=== PATIENT | female | born 1990 | race American Indian/Alaskan Native ===

== ENCOUNTER 2020-06-10 06:10 | Emergency (ER) | payer MEDICAID ==
[2020-06-10 06:51] VITALS: BP 109/58
--- NOTE | 2020-06-10 08:12 | Emergency Department Report ---
ED ENT HPI - General Chief complaint: Earache Stated complaint: RIGHT EAR PAIN Time Seen by Provider: 06/10/20 07:49 Source: patient Mode of arrival: Ambulatory Limitations: No Limitations - History of Present Illness Initial comments: 29-year-old -[place]cu[place] female presents to the emergency room for 2-day history of earache stuffy nose runny nose and sneezing. Patient states she is 27 weeks . She denies any fever chills no nausea no vomiting no abdominal pain no vaginal bleeding or vaginal discharge. She does admit to sneezing frontal headache right ear pain stuffiness and runny nose. She is 4 para 1 last menstrual period was 12/03/2019. She currently has no known drug allergies takes her vitamins and has no past medical history. MD complaint: ear pain Onset/Timin -: days(s) Location: R ear Severity scale (0 -10): 4 Quality: aching Consistency: intermittent Improves with: none Worsens with: none Associated Symptoms: rhinorrhea, other (Nasal congestion). denies: fever, cough, gum swelling, toothache, pain with swallowing, discharge from ear - Related Data Previous Rx's Medication Instructions Recorded Last Taken Type Amoxicillin [Trimox CAP] 500 mg PO Q8H 10 Days #30 capsule 06/10/20 Unknown Rx Cetirizine HCl [ZyrTEC 10mg cap] 10 mg PO QDAY #30 capsule 06/10/20 Unknown Rx Cromolyn 4% (Nf) [Nasalcrom (Nf)] 1 spray NS QDAY #1 bottle 06/10/20 Unknown Rx Allergies Allergy/AdvReac Type Severity Reaction Status Date / Time No Known Allergies Allergy Unverified 06/10/20 06:13 ED Dental HPI - General Chief complaint: Earache Stated complaint: RIGHT EAR PAIN Time Seen by Provider: 06/10/20 07:49 Source: patient Mode of arrival: Ambulatory Limitations: No Limitations - Related Data Previous Rx's Medication Instructions Recorded Last Taken Type Amoxicillin [Trimox CAP] 500 mg PO Q8H 10 Days #30 capsule 06/10/20 Unknown Rx Cetirizine HCl [ZyrTEC 10mg cap] 10 mg PO QDAY #30 capsule 06/10/20 Unknown Rx Cromolyn 4% (Nf) [Nasalcrom (Nf)] 1 spray NS QDAY #1 bottle 06/10/20 Unknown Rx Allergies Allergy/AdvReac Type Severity Reaction Status Date / Time No Known Allergies Allergy Unverified 06/10/20 06:13 ED Review of Systems ROS: Stated complaint: RIGHT EAR PAIN Other details as noted in HPI Comment: All other systems reviewed and negative ED Past Medical Hx - Past Medical History Previous Medical History?: No - Surgical History Past Surgical History?: Yes Additional Surgical History: D & C - Social History Smoking Status: Never Smoker Substance Use Type: None - Medications Home Medications: Home Medications Medication Instructions Recorded Confirmed Last Taken Type Amoxicillin [Trimox CAP] 500 mg PO Q8H 10 Days #30 capsule 06/10/20 Unknown Rx Cetirizine HCl [ZyrTEC 10mg cap] 10 mg PO QDAY #30 capsule 06/10/20 Unknown Rx Cromolyn 4% (Nf) [Nasalcrom (Nf)] 1 spray NS QDAY #1 bottle 06/10/20 Unknown Rx ED Physical Exam - General Limitations: No Limitations General appearance: alert, in no apparent distress - Head Head exam: Present: atraumatic, normocephalic - Eye Eye exam: Present: normal appearance, PERRL, EOMI - ENT ENT exam: Present: normal orophraynx, mucous membranes moist, normal external ear exam - Expanded ENT Exam Expanded TM/Canal exam: Erythema: Right TM - Neck Neck exam: Present: normal inspection, full ROM. Absent: lymphadenopathy - Respiratory Respiratory exam: Present: normal lung sounds bilaterally. Absent: respiratory distress - Cardiovascular Cardiovascular Exam: Present: regular rate, normal rhythm. Absent: systolic murmur, diastolic murmur, rubs, gallop - Neurological Exam Neurological exam: Present: alert, oriented X3, normal gait - Psychiatric Psychiatric exam: Present: normal affect, normal mood - Skin Skin exam: Present: warm, dry, intact, normal color. Absent: rash ED Course Vital Signs 06/10/20 06:15 Temperature 98.5 F Pulse Rate 118 H Respiratory 18 Rate Blood Pressure 109/58 O2 Sat by Pulse 97 Oximetry ED Medical Decision Making - Medical Decision Making 29-year-old -[place]cu[place] female presents to the emergency room for 2-day history of earache stuffy nose runny nose and sneezing. Patient states she is 27 weeks . She denies any fever chills no nausea no vomiting no abdominal pain no vaginal bleeding or vaginal discharge. She does admit to sneezing frontal headache right ear pain stuffiness and runny nose. She is 4 para 1 last menstrual period was 12/03/2019. She currently has no known drug allergies takes her vitamins and has no past medical history. Patient will be discharged home on Zyrtec's, amoxicillin and nasal cromolyn. Patient is instructed to continue with her Tylenol and to follow-up with her RAIL OPERATIONS CONTROLLER. Critical care attestation.: If time is entered above; I have spent that time in minutes in the direct care of this critically ill patient, excluding procedure time. ED Disposition Clinical Impression: Allergic rhinitis, Otitis media Disposition: - TO HOME OR SELFCARE Is pt being admited?: No Does the pt Need Aspirin: No Condition: Stable Instructions: Allergic Rhinitis (ED), Otitis Media (ED) Additional Instructions: Complete antibiotics as prescribed. Take medications as prescribed. Follow-up with your RAIL OPERATIONS CONTROLLER. He can continue with the Tylenol extra strength as needed for pain. Prescriptions: Cromolyn 4% (Nf) [Nasalcrom (Nf)] 1 spray NS QDAY #1 bottle Amoxicillin [Trimox CAP] 500 mg PO Q8H 10 Days #30 capsule Cetirizine HCl [ZyrTEC 10mg cap] 10 mg PO QDAY #30 capsule Referrals: PRIMARY CARE,MD [Primary Care Provider] - 3-5 Days You are, RAIL OPERATIONS CONTROLLER [Other] - 3-5 Days
== END 2020-06-10 08:22 | disposition home or self-care (01) ==
LOC: ED 06:10
DX: O99.512 Diseases of the respiratory system complicating pregnancy, second trimester (principal); J30.9 Allergic rhinitis, unspecified; O26.892 Other specified pregnancy related conditions, second trimester; H66.91 Otitis media, unspecified, right ear; Z79.2 Long term (current) use of antibiotics; Z79.899 Other long term (current) drug therapy; Z3A.27 27 weeks gestation of pregnancy
CPT/HCPCS: 99281

== ENCOUNTER 2020-08-21 15:51 | Outpatient (CLI) | payer MEDICAID ==
[2020-08-21 16:50] VITALS: BP 133/67
== END 2020-08-21 18:04 | disposition home or self-care (01) ==
LOC: TRG 15:51 → APU 15:52 → TRG 18:04
PROVIDERS: ATTEND Obstetrics & Gynecology
DX: O47.1 False labor at or after 37 completed weeks of gestation (principal); Z3A.37 37 weeks gestation of pregnancy
CPT/HCPCS: 59025

== ENCOUNTER 2020-08-28 17:50 | Observation (INO) | payer MEDICAID ==
--- NOTE | 2020-08-28 18:37 | Event Note ---
ED Screening Note Date of service: 08/28/20 Time: 18:29 ED Screening Note: Planes of sudden onset of shortness of breath Referred here by her SHOELACE TIPPING MACHINE OPERATOR, patient gave vaginal 10/26/2019 Preeclamptic per patient Patient actively hyperventilating This initial assessment/diagnostic orders/clinical plan/treatment(s) is/are subject to change based on patients health status, clinical progression and re- assessment by fellow clinical providers in the ED. Further treatment and workup at subsequent clinical providers discretion. Patient/guardian urged not to elope from the ED as their condition may be serious if not clinically assessed and managed. Initial orders include: labs CXR
--- NOTE | 2020-08-28 19:19 | XRay Report ---
CHEST 2 VIEWS INDICATION: shortness of breath. COMPARISON: FINDINGS: Support devices: None. Heart: Cardiac enlargement Lungs: Increased interstitial markings Pleura: No significant pleural effusion. No pneumothorax. Additional findings: None. IMPRESSION: 1. Pulmonary edema-volume overload is a concern Signer Name: Niles Chamberlain MD Signed: 08/28/2020 7:15 PM Workstation Name: [id number]
[2020-08-28 19:20] LABS: Basophils % (Auto) 0.3 % (0.0-1.8); Eosinophils # (Auto) 0.4 K/mm3 (0.0-0.4); Eosinophils % (Auto) 4.6 % (0.0-4.3); Hematocrit 26.8 % (30.3-42.9); Hemoglobin 8.8 gm/dl (10.1-14.3); Lymphocytes # (Auto) 1.6 K/mm3 (1.2-5.4); Lymphocytes % (Auto) 20.3 % (13.4-35.0); Mean Corpuscular HGB Conc 33 % (30-34); Mean Corpuscular Volume 75 fl (79-97); Monocytes # (Auto) 0.4 K/mm3 (0.0-0.8); Monocytes % (Auto) 5.7 % (0.0-7.3); Platelet Count 269 K/mm3 (140-440); Red Blood Count 3.59 M/mm3 (3.65-5.03)
[2020-08-28 20:10] LABS: Alanine Aminotransferase 90 units/L (7-56); Albumin 2.9 g/dL (3.9-5); Blood Urea Nitrogen 13 mg/dL (7-17); Calcium 8.7 mg/dL (8.4-10.2); Hemolysis Index 0
[2020-08-28 20:13] LABS: BUN/Creatinine Ratio 22
--- NOTE | 2020-08-28 21:20 | Emergency Department Report ---
HPI - General Chief Complaint: Dyspnea/Respdistress Time Seen by Provider: 08/28/20 18:17 - HPI HPI: Room 5 The patient is a 30-year-old female present with a chief complaint of shortness of breath. The patient states her symptoms began today when she awakened with slight shortness of breath. The patient states throughout the day she noticed worsening shortness of breath and dyspnea on exertion. Patient admits to a cough for 1 day that is occasionally productive. The patient states she laid down and she was awakened suddenly feel like she was struck in her chest with worsening shortness of breath prompting her to call her GLOVE CUTTER. The patient's GLOVE CUTTER instructed the patient to come to the emergency department. Patient is vaginal delivery 08/25/2020 and states she was diagnosed with preeclampsia. Patient is currently on labetalol ED Past Medical Hx - Past Medical History Previous Medical History?: Yes Additional medical history: Vaginal delivery 08-25-2020 - Surgical History Past Surgical History?: Yes Additional Surgical History: D & C - Family History Family history: no significant - Social History Smoking Status: Never Smoker Substance Use Type: None (Denies illicit drug use) - Medications Home Medications: Home Medications Medication Instructions Recorded Confirmed Last Taken Type Ferrous Sulfate [Feosol 325 MG tab] 325 mg PO BID #60 tablet 08/27/20 Unknown Rx Ibuprofen [Motrin] 600 mg PO Q6H PRN #60 tablet 08/27/20 Unknown Rx labetaloL [Labetalol 100mg TAB] 100 mg PO BID #60 tablet 08/27/20 Unknown Rx ED Review of Systems ROS: Stated complaint: SOB/HIGH BLOOD PRESSURE/DIZZY Other details as noted in HPI Constitutional: fever Eyes: denies: eye pain ENT: denies: throat pain Respiratory: cough, shortness of breath, SOB with exertion Cardiovascular: chest pain Endocrine: no symptoms reported Gastrointestinal: denies: abdominal pain Genitourinary: denies: dysuria Musculoskeletal: denies: back pain Neurological: denies: headache Physical Exam - Physical Exam Vital Signs: Vital Signs 08/28/20 18:18 Temperature 98.7 F Pulse Rate 84 Respiratory 28 H Rate Blood Pressure 155/102 O2 Sat by Pulse 98 Oximetry Physical Exam: GENERAL: The patient is well-developed well-nourished female lying on stretcher not appearing to be in acute distress. [] HEENT: Normocephalic. Atraumatic. Extraocular motions are intact. Patient has moist mucous membranes. NECK: Supple. Trachea midline CHEST/LUNGS: Clear to auscultation. There is no respiratory distress noted. HEART/CARDIOVASCULAR: Regular. There is no tachycardia. There is no gallop rub or murmur. ABDOMEN: Abdomen is soft, nontender. Patient has normal bowel sounds. There is no abdominal distention. SKIN: There is no rash. There is trace to 1+ bilateral lower extremity pitting edema. There is no diaphoresis. NEURO: The patient is awake, alert, and oriented. The patient is cooperative. The patient has normal speech MUSCULOSKELETAL: There is no evidence of acute injury. ED Course Vital Signs 08/28/20 18:18 Temperature 98.7 F Pulse Rate 84 Respiratory 28 H Rate Blood Pressure 155/102 O2 Sat by Pulse 98 Oximetry - Consultations Consultation #1: 08/28/20 22:38 GLOVE CUTTER paged ED Medical Decision Making - Lab Data Result diagrams: 08/28/20 18:52 08/28/20 18:52 Laboratory Tests 08/28/20 08/28/20 08/28/20 18:52 18:52 18:52 WBC 7.8 RBC 3.59 L Hgb 8.8 L Hct 26.8 L MCV 75 L MCH 25 L MCHC 33 RDW 21.0 H Plt Count 269 Lymph % (Auto) 20.3 Sharkey % (Auto) 5.7 Eos % (Auto) 4.6 H Baso % (Auto) 0.3 Lymph # (Auto) 1.6 Sharkey # (Auto) 0.4 Eos # (Auto) 0.4 Baso # (Auto) 0.0 Seg Neutrophils % 69.1 Seg Neutrophils # 5.4 D-Dimer 1088.90 H Sodium 137 Potassium 4.4 Chloride 105.8 Carbon Dioxide 20 L Anion Gap 16 BUN 13 Creatinine 0.6 Estimated GFR > 60 BUN/Creatinine Ratio 22 Glucose 74 Calcium 8.7 Total Bilirubin < 0.20 AST 120 H ALT 90 H Alkaline Phosphatase 127 Troponin T NT-Pro-B Natriuret Pep Total Protein 5.7 L Albumin 2.9 L Albumin/Globulin Ratio 1.0 08/28/20 08/28/20 18:52 20:31 WBC RBC Hgb Hct MCV MCH MCHC RDW Plt Count Lymph % (Auto) Sharkey % (Auto) Eos % (Auto) Baso % (Auto) Lymph # (Auto) Sharkey # (Auto) Eos # (Auto) Baso # (Auto) Seg Neutrophils % Seg Neutrophils # D-Dimer Sodium Potassium Chloride Carbon Dioxide Anion Gap BUN Creatinine Estimated GFR BUN/Creatinine Ratio Glucose Calcium Total Bilirubin AST ALT Alkaline Phosphatase Troponin T < 0.010 NT-Pro-B Natriuret Pep 263.3 Total Protein Albumin Albumin/Globulin Ratio - Radiology Data Radiology results: report reviewed (Chest x-ray, CT chest), image reviewed (Chest x-ray, CT chest) interpreted by me: Chest x-ray-no focal infiltrates, no pneumothorax. No foreign body seen Findings [address] [address] XRay Report Signed Patient: EDWIN JONES MR#: [id number] : 1990 Acct:[id number] Age/Sex: 30 / F ADM Date: 08/28/20 Loc: ED Attending Dr: Ordering Physician: ROSE SENIOR Date of Service: 08/28/20 Procedure(s): XR chest routine 2V Accession Number(s): [id number] cc: ROSE SENIOR Fluoro Time In Minutes: CHEST 2 VIEWS INDICATION: shortness of breath. COMPARISON: FINDINGS: Support devices: None. Heart: Cardiac enlargement Lungs: Increased interstitial markings Pleura: No significant pleural effusion. No pneumothorax. Additional findings: None. IMPRESSION: 1. Pulmonary edema-volume overload is a concern Signer Name: Niles Chamberlain MD Signed: 08/28/2020 7:15 PM Workstation Name: [id number] Transcribed By: WG Dictated By: Niles Chamberlain MD Electronically Authenticated By: Niles Chamberlain MD Signed Date/Time: 08/28/201914 DD/ 13 TD/TT: Findings [address] [address] Cat Scan Report Signed Patient: EDWIN JONES MR#: [id number] : 1990 Acct:[id number] Age/Sex: 30 / F ADM Date: 08/28/20 Loc: ED Attending Dr: Ordering Physician: ALEXI MCWILLIAMS MD Date of Service: 08/28/20 Procedure(s): CT angio chest Accession Number(s): [id number] cc: ALEXI MCWILLIAMS MD CTA CHEST WITH IV CONTRAST INDICATION / CLINICAL INFORMATION: Shortness of breath, . TECHNIQUE: Axial CT images were obtained through the chest after injection of 100 cc Omnipaque 350 milligrams percent IV contrast. 3 plane MIP and/or 3D reconstructions were produced. All CT scans at this location are performed using CT dose reduction for ALARA by means of automated exposure control. COMPARISON: None available. FINDINGS: PULMONARY ARTERIES: No pulmonary emboli. THORACIC AORTA: No significant abnormality. HEART: Cardiac enlargement CORONARY ARTERIES: No significant calcification. PLEURA: Small right pleural effusion. No pneumothorax. LYMPH NODES: No significant adenopathy. LUNGS: Minimum prominent interstitial markings No acute air space or interstitial disease. ADDITIONAL FINDINGS: None. UPPER ABDOMEN: No acute findings. SKELETAL STRUCTURES: No si gnificant osseous abnormality. IMPRESSION: 1. No CT evidence for pulmonary embolism. 2. Small right pleural effusion. 3. Cardiac enlargement Signer Name: Niles Chamberlain MD Signed: 08/28/2020 10:12 PM Workstation Name: [id number] Transcribed By: WG Dictated By: Niles Chamberlain MD Electronically Authenticated By: Niles Chamberlain MD Signed Date/Time: 08/28/202211 DD/ 09 TD/TT: - Differential Diagnosis cardiomyopathy, PE, preeclampsia Critical care attestation.: If time is entered above; I have spent that time in minutes in the direct care of this critically ill patient, excluding procedure time. ED Disposition Clinical Impression: Preeclampsia, Shortness of breath Disposition: DC-09 OP ADMIT IP TO THIS HOSP Is pt being admited?: Yes Does the pt Need Aspirin: No Condition: Fair Instructions: Hypertension (ED) Time of Disposition: 23:24 (Case discussed with Dr. Ambrose)
--- NOTE | 2020-08-28 22:17 | Cat Scan Report ---
CTA CHEST WITH IV CONTRAST INDICATION / CLINICAL INFORMATION: Shortness of breath, . TECHNIQUE: Axial CT images were obtained through the chest after injection of 100 cc Omnipaque 350 milligrams pe rcent IV contrast. 3 plane MIP and/or 3D reconstructions were produced. All CT scans at this location are performed using CT dose reduction for ALARA by means of automated exposure control. COMPARISON: None available. FINDINGS: PULMONARY ARTERIES: No pulmonary emboli. THORACIC AORTA: No significant abnormality. HEART: Cardiac enlargement CORONARY ARTERIES: No significant calcification. PLEURA: Small right pleural effusion. No pneumothorax. LYMPH NODES: No significant adenopathy. LUNGS: Minimum prominent interstitial markings No acute air space or interstitial disease. ADDITIONAL FINDINGS: None. UPPER ABDOMEN: No acute findings. SKELETAL STRUCTURES: No significant osseous abnormality. IMPRESSION: 1. No CT evidence for pulmonary embolism. 2. Small right pleural effusion. 3. Cardiac enlargement Signer Name: Niles Chamberlain MD Signed: 08/28/2020 10:12 PM Workstation Name: [id number]
[2020-08-28 23:27] LABS: Bacteria,Urine 1+ /HPF (Negative); Bilirubin,Urine NEG (Negative); Blood,Urine LG (Negative); Color,Urine Red (Yellow); Mucus,Urine FEW /HPF; Urobilinogen,Urine < 2.0 mg/dL (<2.0)
[2020-08-28 23:36] LABS: RBC,Urine > 182.0 /HPF (0.0-6.0); WBC,Urine > 182.0 /HPF (0.0-6.0)
[2020-08-28] MEDS ORDERED: NIFEdipine XL 30 MG TAB PO ONE (23:45)
[2020-08-29] MEDS ORDERED: hydrALAZINE 20 MG/1 ML INJ ONE (02:45)
[2020-08-29] MEDS ORDERED: MAGNESIUM SULFATE 4 GM/100 ML BAG IV ONE (02:52)
[2020-08-29] MEDS ORDERED: FUROSEMIDE 20 MG/2 ML INJ IV ONE (02:57)
[2020-08-29] MEDS ORDERED: LACTATED RINGERS 1,000 ML ONE (03:36)
[2020-08-29] MEDS ORDERED: ACETAMINOPHEN 325 MG TAB PO PRN (03:39)
[2020-08-29] MEDS ORDERED: ONDANSETRON 4 MG/2 ML INJ IV PRN (03:39)
[2020-08-29] MEDS ORDERED: NalbUPHINE 10 MG/1 ML INJ IV PRN (03:39)
[2020-08-29] MEDS ORDERED: ePHEDrine SULFATE 50 MG/1 ML INJ IV PRN (03:39)
[2020-08-29] MEDS ORDERED: NALOXONE 0.4 MG/1 ML INJ IV PRN (03:39)
[2020-08-29] MEDS ORDERED: LACTATED RINGERS 1,000 ML IV SCH (03:45)
[2020-08-29] MEDS ORDERED: hydrALAZINE 20 MG/1 ML INJ IV PRN (03:46)
[2020-08-29 05:37] LABS: Hematocrit 27.3 % (30.3-42.9); Mean Corpuscular HGB Conc 33 % (30-34); Mean Corpuscular Volume 76 fl (79-97); Platelet Count 296 K/mm3 (140-440); Red Blood Count 3.61 M/mm3 (3.65-5.03)
[2020-08-29 05:41] LABS: Red Cell Distribution Width 20.9 % (13.2-15.2)
[2020-08-29 05:48] LABS: Alanine Aminotransferase 147 units/L (7-56)
[2020-08-29 05:51] LABS: Uric Acid 8.6 mg/dL (3.5-7.6)
[2020-08-29] MEDS: MAGNESIUM SULFATE 40GM/1000ML 40 GM/1,000 ML BAG IV SCH (07:30)
--- NOTE | 2020-08-29 09:53 | History and Physical Report ---
History of Present Illness Date of examination: 08/29/20 Date of admission: 08/28/20 23:21 Chief complaint: Lightheadedness History of present illness: Pt is a 30 yo G Past History - Obstetrical History : 4 Medications and Allergies Allergies Allergy/AdvReac Type Severity Reaction Status Date / Time No Known Allergies Allergy Verified 08/21/20 16:50 Home Medications Medication Instructions Recorded Confirmed Last Taken Type Ferrous Sulfate [Feosol 325 MG tab] 325 mg PO BID #60 tablet 08/27/20 Unknown Rx Ibuprofen [Motrin] 600 mg PO Q6H PRN #60 tablet 08/27/20 Unknown Rx labetaloL [Labetalol 100mg TAB] 100 mg PO BID #60 tablet 08/27/20 Unknown Rx Active Meds: Active Medications Acetaminophen (Acetaminophen 325 Mg Tab) 650 mg PO Q4H PRN PRN Reason: Pain, Mild (1-3) Last Admin: 08/29/20 09:50 Dose: 650 mg Documented by: Ephedrine Sulfate (Ephedrine Sulfate 50 Mg/1 Ml Inj) 10 mg IV Q2M PRN PRN Reason: Hypotension Hydralazine HCl (Hydralazine 20 Mg/1 Ml Inj) 5 mg IV Q30MIN PRN PRN Reason: Blood Pressure Magnesium Sulfate (Magnesium Sulfate 40gm/1000ml) 40 gm in 1,000 mls @ 50 mls/hr IV DIRECT MARSHA Last Admin: 08/29/20 07:30 Dose: 2 gm/hr, 50 mls/hr Documented by: Lactated Ringer's (Lactated Ringers) 1,000 mls @ 125 mls/hr IV DIRECT MARSHA Last Admin: 08/29/20 03:55 Dose: 25 mls/hr Documented by: Nalbuphine HCl (Nalbuphine 10 Mg/1 Ml Inj) 10 mg IV Q2H PRN PRN Reason: Pain, Moderate (4-6) Naloxone HCl (Naloxone 0.4 Mg/1 Ml Inj) 0.1 mg IV Q2MIN PRN PRN Reason: Res Rate </= 8 or 02 SAT < 92% Nifedipine (Nifedipine Xl 30 Mg Tab) 30 mg PO QDAY MARSHA Ondansetron HCl (Ondansetron 4 Mg/2 Ml Inj) 4 mg IV Q8H PRN PRN Reason: Nausea And Vomiting - Vital Signs Vital signs: Vital Signs Temp Pulse Resp BP Pulse Ox 98.7 F 84 28 H 155/102 98 08/28/20 18:18 08/28/20 18:18 08/28/20 18:18 08/28/20 18:18 08/28/20 18:18 Temp Pulse Resp BP Pulse Ox 97.8 F 97 H 16 136/79 98 08/29/20 07:22 08/29/20 09:50 08/29/20 07:22 08/29/20 09:44 08/29/20 09:50 Results Result Diagrams: 08/29/20 03:20 08/29/20 03:20 Abnormal lab results 08/28/20 08/28/20 08/28/20 Range/Units 18:52 18:52 18:52 RBC 3.59 L (3.65-5.03) M/mm3 Hgb 8.8 L (10.1-14.3) gm/dl Hct 26.8 L (30.3-42.9) % MCV 75 L (79-97) fl MCH 25 L (28-32) pg RDW 21.0 H (13.2-15.2) % Eos % (Auto) 4.6 H (0.0-4.3) % D-Dimer 1088.90 H (0-234) ng/mlDDU Carbon Dioxide 20 L (22-30) mmol/L Uric Acid (3.5-7.6) mg/dL AST 120 H (5-40) units/L ALT 90 H (7-56) units/L Lactate Dehydrogenase (91-180) units/L Total Protein 5.7 L (6.3-8.2) g/dL Albumin 2.9 L (3.9-5) g/dL Urine WBC (Auto) (0.0-6.0) /HPF 08/28/20 08/29/20 08/29/20 Range/Units 21:42 03:20 03:20 RBC 3.61 L (3.65-5.03) M/mm3 Hgb 9.0 L (10.1-14.3) gm/dl Hct 27.3 L (30.3-42.9) % MCV 76 L (79-97) fl MCH 25 L (28-32) pg RDW 20.9 H (13.2-15.2) % Eos % (Auto) (0.0-4.3) % D-Dimer (0-234) ng/mlDDU Carbon Dioxide (22-30) mmol/L Uric Acid 8.6 H (3.5-7.6) mg/dL AST 189 H (5-40) units/L ALT 147 H (7-56) units/L Lactate Dehydrogenase 451 H (91-180) units/L Total Protein (6.3-8.2) g/dL Albumin (3.9-5) g/dL Urine WBC (Auto) > 182.0 H (0.0-6.0) /HPF All other labs normal.
[2020-08-29] MEDS ORDERED: NIFEdipine XL 30 MG TAB PO SCH (10:00)
--- NOTE | 2020-08-29 10:43 | History and Physical Report ---
History of Present Illness Date of examination: 08/29/20 Date of admission: 08/28/20 23:21 Chief complaint: Shortness of breath History of present illness: 30 year old -[place] BERNARDO 09/08/20 presents on day 3 s/p at 38wks presents with shortness of breath. She reports difficulty breathing which is worse with exertion. Her course was complicated by PreEclampsia with SF, for which she was treated with magnesium x 24 hours after delivery.She was discharged on Labetalol 100 BID to which she reports compliance. She denies BURROUGHS,RUQ pain, or changes to vision. She denies cough, fever, or chills. Her was complicated by morbid obesity, anemia s/p Heme referral and iron infusions, genital herpes without lesion or prodrome, and alpha thalassemia silent carrier status. She has no additional complaints. Past History Past Medical History: hypertension (preeclampsia) Past Surgical History: D&C INSPECTOR INSULATION History: herpes (without lesion or prodrome) - Obstetrical History : 4 Medications and Allergies Allergies Allergy/AdvReac Type Severity Reaction Status Date / Time No Known Allergies Allergy Verified 08/21/20 16:50 Home Medications Medication Instructions Recorded Confirmed Last Taken Type Ferrous Sulfate [Feosol 325 MG tab] 325 mg PO BID #60 tablet 08/27/20 Unknown Rx Ibuprofen [Motrin] 600 mg PO Q6H PRN #60 tablet 08/27/20 Unknown Rx labetaloL [Labetalol 100mg TAB] 100 mg PO BID #60 tablet 08/27/20 Unknown Rx Active Meds: Active Medications Acetaminophen (Acetaminophen 325 Mg Tab) 650 mg PO Q4H PRN PRN Reason: Pain, Mild (1-3) Last Admin: 08/29/20 09:50 Dose: 650 mg Documented by: Ephedrine Sulfate (Ephedrine Sulfate 50 Mg/1 Ml Inj) 10 mg IV Q2M PRN PRN Reason: Hypotension Hydralazine HCl (Hydralazine 20 Mg/1 Ml Inj) 5 mg IV Q30MIN PRN PRN Reason: Blood Pressure Magnesium Sulfate (Magnesium Sulfate 40gm/1000ml) 40 gm in 1,000 mls @ 50 mls/hr IV DIRECT MARSHA Last Admin: 08/29/20 07:30 Dose: 2 gm/hr, 50 mls/hr Documented by: Lactated Ringer's (Lactated Ringers) 1,000 mls @ 125 mls/hr IV DIRECT [facility] Last Admin: 08/29/20 03:55 Dose: 25 mls/hr Documented by: Nalbuphine HCl (Nalbuphine 10 Mg/1 Ml Inj) 10 mg IV Q2H PRN PRN Reason: Pain, Moderate (4-6) Naloxone HCl (Naloxone 0.4 Mg/1 Ml Inj) 0.1 mg IV Q2MIN PRN PRN Reason: Res Rate </= 8 or 02 SAT < 92% Nifedipine (Nifedipine Xl 30 Mg Tab) 30 mg PO QDAY [facility] Last Admin: 08/29/20 10:34 Dose: 30 mg Documented by: Ondansetron HCl (Ondansetron 4 Mg/2 Ml Inj) 4 mg IV Q8H PRN PRN Reason: Nausea And Vomiting Review of Systems All systems: negative Constitutional: no fever, no chills Cardiovascular: dyspnea on exertion, no chest pain - Vital Signs Vital signs: Vital Signs Temp Pulse Resp BP Pulse Ox 98.7 F 84 28 H 155/102 98 08/28/20 18:18 08/28/20 18:18 08/28/20 18:18 08/28/20 18:18 08/28/20 18:18 Temp Pulse Resp BP Pulse Ox 97.8 F 92 H 16 121/67 97 08/29/20 10:37 08/29/20 10:35 08/29/20 07:22 08/29/20 09:52 08/29/20 10:35 - Physical Exam Cardiovascular: Regular rate Lungs: Positive: Clear to auscultation Abdomen: Positive: normal appearance, normal bowel sounds Uterus: Positive: enlarged (fundus 2fb below umbilicus) Extremities: Positive: edema Results Result Diagrams: 08/29/20 03:20 08/29/20 03:20 Abnormal lab results 08/28/20 08/28/20 08/28/20 Range/Units 18:52 18:52 18:52 RBC 3.59 L (3.65-5.03) M/mm3 Hgb 8.8 L (10.1-14.3) gm/dl Hct 26.8 L (30.3-42.9) % MCV 75 L (79-97) fl MCH 25 L (28-32) pg RDW 21.0 H (13.2-15.2) % Eos % (Auto) 4.6 H (0.0-4.3) % D-Dimer 1088.90 H (0-234) ng/mlDDU Carbon Dioxide 20 L (22-30) mmol/L Uric Acid (3.5-7.6) mg/dL AST 120 H (5-40) units/L ALT 90 H (7-56) units/L Lactate Dehydrogenase (91-180) units/L Total Protein 5.7 L (6.3-8.2) g/dL Albumin 2.9 L (3.9-5) g/dL Urine WBC (Auto) (0.0-6.0) /HPF 08/28/20 08/29/20 08/29/20 Range/Units 21:42 03:20 03:20 RBC 3.61 L (3.65-5.03) M/mm3 Hgb 9.0 L (10.1-14.3) gm/dl Hct 27.3 L (30.3-42.9) % MCV 76 L (79-97) fl MCH 25 L (28-32) pg RDW 20.9 H (13.2-15.2) % Eos % (Auto) (0.0-4.3) % D-Dimer (0-234) ng/mlDDU Carbon Dioxide (22-30) mmol/L Uric Acid 8.6 H (3.5-7.6) mg/dL AST 189 H (5-40) units/L ALT 147 H (7-56) units/L Lactate Dehydrogenase 451 H (91-180) units/L Total Protein (6.3-8.2) g/dL Albumin (3.9-5) g/dL Urine WBC (Auto) > 182.0 H (0.0-6.0) /HPF All other labs normal. Assessment and Plan Admit OBS, BP control, Strict I/O, Seizure prophylaxis - Patient Problems (1) Preeclampsia Status: Acute Plan to address problem: -Magnesium for seizure prophylaxis -Procardia 30XL -Hydralazine IV prn severe elevations (2) Pulmonary edema Status: Acute Plan to address problem: Lasix 20 IV, repeat q 12 -Morphine 2mg IV x 1 -Cardiology consult for cardiac enlargement, possible TTE
[2020-08-29] MEDS ORDERED: IBUPROFEN 600 MG TAB PO PRN (13:33)
[2020-08-29] MEDS ORDERED: MORPHINE 2 MG/1 ML INJ IV PRN (13:49)
[2020-08-29] MEDS ORDERED: LIDOCAINE-MPF (1%) 10 MG/1 ML VIAL 5 ML INFILTRATI ONE (14:42)
--- NOTE | 2020-08-29 14:59 | Event Note ---
Date: 08/29/20 Pt reports worsening headache not relieved by Morphine. Frontal, throbbing, denies scotomata or nausea. Negative clonus. Per Dr. Ambrose, order CT of head.
[2020-08-29] MEDS ORDERED: cefTRIAXone/NS 2 GM/100 ML 2 GM/100 ML BAG IV ONE (15:42)
--- NOTE | 2020-08-29 16:02 | Cat Scan Report ---
CT head/brain wo con INDICATION / CLINICAL INFORMATION: 30 years Female; Headache, preeclampsia with severe features. TECHNIQUE: Routine CT head without contrast. All CT scans at this location are performed using CT dos e reduction for ALARA by means of automated exposure control. COMPARISON: None. FINDINGS: BRAIN / INTRACRANIAL CONTENTS: The brain appears to demonstrate appropriate attenuation. There is no clear CT evidence of edematous changes involving posterior white matter on the current study though c orrelation would be needed regarding hypertension and history of preeclampsia. The ventricular system is within normal limits in size and configuration. There is also no CT evidence of acute intracrania l hemorrhage. ORBITS: No significant abnormality of visualized orbits. SINUSES / MASTOIDS: There is mild opacification along the visualized inferior right maxillary sinus. CRANIOCERVICAL JUNCTION: No significant abnormality. ADDITIONAL FINDINGS: None. IMPRESSION: 1. There is no clear CT evidence of acute intracranial process. Signer Name: Ata Sanabria MD Signed: 08/29/2020 3:57 PM Workstation Name: [id number]
[2020-08-29] MEDS: BUTALB/ACETAMINOPHEN/CAFFEINE TAB PO PRN ×2 (17:01→21:12)
[2020-08-29] MEDS ORDERED: BUTALB/ACETAMINOPHEN/CAFFEINE TAB PO STA (17:34)
[2020-08-29] MEDS ORDERED: IBUPROFEN 600 MG TAB PO ONE (22:47)
[2020-08-30] MEDS: MAGNESIUM SULFATE 40GM/1000ML 40 GM/1,000 ML BAG IV SCH (01:30)
--- NOTE | 2020-08-30 05:58 | XRay Report ---
CHEST 1 VIEW [id number] INDICATION / CLINICAL INFORMATION: pulmonary edema - cough COMPARISON: 08/28/2020 FINDINGS: SUPPORT DEVICES: None HEART / MEDIASTINUM: No significant abnormality. LUNGS / PLEURA: No significant pulmonary or pleural abnormality. No pneumothorax. ADDITIONAL FINDINGS: No significant additional findings. IMPRESSION: No significant acute abnormality Signer Name: Joni Vallecillo MD Signed: 08/30/2020 5:53 AM Workstation Name: [id number]
--- NOTE | 2020-08-30 06:56 | Discharge Summary ---
Providers - Providers Date of Admission: 08/28/20 23:21 Date of discharge: 08/30/20 Attending physician: RAI WILKERSON MD Hospitalization Reason for admission: other ( preeclampsia with severe features) Hospital course: Pt presented to the ED reporting shortness of breath. She was found to have pulmonary edema and severe range BP. She received Magnesium Sulfate IV x2 hours, one dose of IV Lasix, and antihypertensives. Throughout the course of her stay, she developed a frontal headache that resolved with 3 doses of Fioricet and 600mg of Ibuprofen. After completing Magnesium Sulfate infusion, her chest xray was wnl, her headache had resolved, and her blood pressures were normal. She will follow up with [facility] in 1 week. Condition at discharge: Good Disposition: DC-01 TO HOME OR SELFCARE Plan - Discharge Medications Prescriptions: NIFEdipine XL [Procardia Xl] 30 mg PO QDAY #28 tablet - Provider Discharge Summary Activity: routine, no sex for 6 weeks, no heavy lifting 4 weeks, no strenuous exercise Diet: routine Instructions: routine Additional instructions: [] Smoking cessation referral if applicable(refer to patient education folder for contact #) [] Refer to [facility] Booklet Call your doctor immediately for: * Fever > 100.5 * Heavy vaginal bleeding ( >1 pad per hour) * Severe persistent headache * Shortness of breath * Reddened, hot, painful area to leg or breast * Drainage or odor from incision. * Keep incision clean and dry at all times and follow doctor's instructions regarding bathing/showering - Follow up plan Follow up: [facility] [Other] - 7 Days
[2020-08-30 07:06] VITALS: BP 135/73
[2020-08-30] MEDS ORDERED: NIFEdipine XL 30 MG TAB PO ONE (07:20)
== END 2020-08-30 07:40 | disposition home or self-care (01) ==
LOC: ED 17:50 → LD 23:21
PROVIDERS: ADMIT Obstetrics & Gynecology; ATTEND Obstetrics & Gynecology
DX: O14.95 Unspecified pre-eclampsia, complicating the puerperium (principal); J81.1 Chronic pulmonary edema; Z98.890 Other specified postprocedural states; Z79.899 Other long term (current) drug therapy
CPT/HCPCS: 36415; 70450; 71045; 71046; 71275; 80053; 81001; 82565; 83615; 83735; 83880; 84450; 84460; 84484; 84550; 85025; 85027; 85379; 93005; 96365; 96366; 96367; 96375; 99285; G0378; J0360; J0696; J1940; J2270; J3475; J7120; Q9967